=== PATIENT | female | born 1990 | race Caucasian/White ===

== ENCOUNTER 2024-12-21 12:21 | Emergency (ER) | payer OTHER, SELFPAY ==
[2024-12-21 12:23] VITALS: BP 160/102
[2024-12-21 13:16] VITALS: BMI 20.8
[2024-12-21 13:20] VITALS: BP 139/81
--- NOTE | 2024-12-21 13:32 | ED.GENMED ---
History of Present Illness
<Felicitas Pike, INSERT CUTTER - Last Filed: 12/22/24 14:59>
General
Chief Complaint: Urinary Symptoms
Source: patient
Exam Limitations: none
Time Seen by Provider: 12/21/24 12:55
Nursing documentation reviewed up to this point in time: agreed with
History of Present Illness
History of Present Illness:
34 yo female here for left flank pain anterior and posteriorly for past week. She also feels nauseous. 'They said I have a lesion on my kidney.'
She has a history of migraines, anxiety, chronic convulsions, depression, IBS, cholecystectomy, appendectomy, psychiatric disorder somatic symptom disorder listed on her [facility] paperwork
she was in [facility] ER yesterday and has paperwork (scanned into her chart), states she was diagnosed with shingles left side abdomen and back but could not get her Valtrex filled as she states her pharmacy is closed.
Saw her PCP 4 days ago, diagnosed with 'kidney infection' and given Levaquin. She has taken 4 doses and states she can't take any more due to nausea.
Past History
<Felicitas Pike, INSERT CUTTER - Last Filed: 12/22/24 14:59>
Past History
ED Past Medical History: Seizures, Other (Chronic migraines, chronic neck and back pain, fibromyalgia) and Other (Heart palpitations)
ED Past Surgical History: Orthopedic
Social History
Tobacco: Non-smoker
Alcohol: None
Drug: None
Personal: Single
Living: with family
Employment: Employed
Family History
Family History: Other (Noncontributory)
Review of Systems
<Felicitas Pike, INSERT CUTTER - Last Filed: 12/22/24 14:59>
Review of Systems
Allergies reviewed?: Yes
All Other Systems: ROS reviewed and negative except as documented in HPI and ROS
Constitutional: Denies fever
Respiratory: Denies trouble breathing
Cardiac: Denies chest pain
: Reports flank pain (left)
Musculoskeletal: Reports no symptoms
Skin: Reports no symptoms
Neurological: Denies headache
Psychiatric: Reports anxiety (crying)
Phy Exam
<Felicitas Pike, INSERT CUTTER - Last Filed: 12/22/24 14:59>
Physical Exam
Physical Exam:
GENERAL: Crying constantly
CONSTITUTIONAL: Afebrile.
ENMT: moist mucus membranes, Pharynx nl
RESPIRATORY: Regular respirations, nonlabored, lungs clear.
CARDIOVASCULAR: Regular rate and rhythm, no murmurs, no rubs.
GI: Soft, patient is holding her left abdomen with her right hand and her left flank with her left hand rocking back and forth stating significant pain and 'they told me I had shingles,' normal BS
MUSCULOSKELETAL: Moves with ease. Well perfused.
SKIN: Warm, dry, pink. There is mild erythema left flank and abdomen where she has been squeezing with her hands, no blisters or rash
PSYCH: Anxious tearful mood and affect.
NEUROLOGIC: Awake, alert and oriented. No focal neurological deficits
Course
<Felicitas Pike, INSERT CUTTER - Last Filed: 12/22/24 14:59>
Orders/Labs/Results
Orders:
Orders
12/21/24 13:18
Urinalysis Reflex To Culture Urgent
Date Specimen was Collected: 12/21/24
Time Specimen was Collected: 12:47
Urine Microscopic Reflex Cult Urgent
Urine Culture Urgent
RADHA Source: U
Specimen Description:
Date Specimen was Collected: 12/21/24
Time Specimen was Collected: 12:47
12/21/24 13:23
Test Result ONCE
12/21/24 13:25
Complete Blood Count/With Diff Urgent
Comprehensive Metabolic Panel Urgent
HCG, Serum Qualitative Screen Urgent
12/21/24 13:42
Renal Only US [US Renal Only W/O Bladder] Urgent
Comment:
Reason For Exam: flank pain
12/21/24 14:28
Ondansetron Orally Disint [Zofran Odt (Orally Disintegrating)] 4 mg PO NOW STA
12/21/24 14:30
Gabapentin [Neurontin] 300 mg PO NOW STA
12/21/24 15:44
Lorazepam [Ativan] 0.5 mg IM NOW STA
Abnormal Lab Results
12/21/24 12/21/24
13:18 13:25
MCH 31.4 H pg
(27.0-31.0)
MPV 11.2 H fL
(7.4-10.4)
Lymphocytes % 20.4 L %
(20.5-51.1)
Leukocyte Esterase Rfl 2+ A
(Negative)
Urine WBC (Reflex) 11-15 A /HPF
(0-5)
Urine Bacteria (Reflex) Moderate A
(Negative)
Urine Albumin (Reflex) 1+ A
(Neg - Trace)
12/21/24 13:25
12/21/24 13:25
Vital Signs
Initial and Last Documented VS:
Initial Vital Signs
Temp Pulse Resp BP Pulse Ox
98.4 F 80 18 160/102 98
12/21/24 12:23 12/21/24 12:23 12/21/24 12:23 12/21/24 12:23 12/21/24 12:23
Last Documented Vital Signs
Temp Pulse Resp BP Pulse Ox
98.5 F 78 16 139/81 98
12/21/24 13:20 12/21/24 13:20 12/21/24 13:20 12/21/24 13:20 12/21/24 13:20
<Dell Francis MD - Last Filed: 12/21/24 15:11>
Orders/Labs/Results
Orders:
Orders
12/21/24 13:18
Urinalysis Reflex To Culture Urgent
Date Specimen was Collected: 12/21/24
Time Specimen was Collected: 12:47
Urine Microscopic Reflex Cult Urgent
Urine Culture Urgent
RADHA Source: U
Specimen Description:
Date Specimen was Collected: 12/21/24
Time Specimen was Collected: 12:47
12/21/24 13:23
Test Result ONCE
12/21/24 13:25
Complete Blood Count/With Diff Urgent
Comprehensive Metabolic Panel Urgent
HCG, Serum Qualitative Screen Urgent
12/21/24 13:42
Renal Only US [US Renal Only W/O Bladder] Urgent
Comment:
Reason For Exam: flank pain
12/21/24 14:28
Ondansetron Orally Disint [Zofran Odt (Orally Disintegrating)] 4 mg PO NOW STA
12/21/24 14:30
Gabapentin [Neurontin] 300 mg PO NOW STA
12/21/24 15:44
Lorazepam [Ativan] 0.5 mg IM NOW STA
Abnormal Lab Results
12/21/24 12/21/24
13:18 13:25
MCH 31.4 H pg
(27.0-31.0)
MPV 11.2 H fL
(7.4-10.4)
Lymphocytes % 20.4 L %
(20.5-51.1)
Leukocyte Esterase Rfl 2+ A
(Negative)
Urine WBC (Reflex) 11-15 A /HPF
(0-5)
Urine Bacteria (Reflex) Moderate A
(Negative)
Urine Albumin (Reflex) 1+ A
(Neg - Trace)
12/21/24 13:25
12/21/24 13:25
Vital Signs
Initial and Last Documented VS:
Initial Vital Signs
Temp Pulse Resp BP Pulse Ox
98.4 F 80 18 160/102 98
12/21/24 12:23 12/21/24 12:23 12/21/24 12:23 12/21/24 12:23 12/21/24 12:23
Last Documented Vital Signs
Temp Pulse Resp BP Pulse Ox
98.5 F 78 16 139/81 98
12/21/24 13:20 12/21/24 13:20 12/21/24 13:20 12/21/24 13:20 12/21/24 13:20
<Felicitas Pike, INSERT CUTTER - Last Filed: 12/22/24 14:59>
MDM/Problems Addressed
MDM/Problems Addressed:
Her chart from [facility] yesterday reviewed: she was discharged with diagnoses of herpes zoster, enteritis, renal lesion and suggested to f/u US of kidney as out pt.
She was given gabapentin 300 mg, morphine 4 mg intravenous, Zofran, IV fluids,
had a CAT scan with IV contrast with the only significant findings were: cannot exclude mild small bowel wall thickening/acute enteritis, left ovary containing the remnant of the recently collapsed follicle or cyst. Trace pelvic fluid. A 10 mm
indeterminate left renal cortical lesion and a follow-up nonemergent renal ultrasound was recommended.
Her current medications are listed as Zyrtec 10 mg daily
Flexeril 10 mg twice daily as needed muscle spasms
Sominex which is diphenhydramine 25 mg daily Marinol or dronabinol 5 mg 4 times a day
Gabapentin 600 mg 1 tablet 3 times a day
Zofran 4 mg every 6 hours as needed
Zanaflex 2 mg by mouth 3 times a day
And she was given a prescription for Valtrex 1 g 3 times a day for 7 days
Patient now states she could not get her prescription filled as it was called into the [place] pharmacy and it is not open
I called this get back pharmacy and it is open till 3 PM today. It is closed tomorrow Monday due to the holiday
Since her complete workup at [facility] was negative yesterday including CBC, CMP, CPK, Mg++, Lactate, Hepatic panel, U/A, neg Urine test, EKG, Covid, all unremarkable
Today CBC, CMP normal, HCG neg.
U/A 2+ Leukocytes, 11-15 WBC, moderate bacteria
2:45 PM:
So far workup is negative, patient has not stopped crying since arrival saying 'I am so sick, I do not feel good...What if it is my lupus?... He [her PCP] told me I had a kidney infection...' (She does have a bottle of Levaquin that he has
prescribed for her but she states she cannot hold any of her pills down due to nausea and when offered Zofran she states she took it at home but threw it up and she cannot hold anything down. Offered ODT disintegrating Zofran and she states 'that
will not work.' She has been on the phone with an unknown person, crying constantly for the past 20 minutes stating 'they are not doing anything for me... They won't admit me and give me IV fluids...I need a shot of something for pain.' States she
had Morphine IV at [facility] and is requesting that.
Her urine here shows no significant infection, there are a few white blood cells and I explained to her that we have to wait to the urine culture comes back so we know if and which antibiotic is appropriate. I told her she could hold off on the
antibiotic until the culture comes back but she is constantly crying holding her left flank saying that they told her she has herpes. There is a very mild pink lacy rash on her left posterior and anterior flank but she is constantly grabbingand
squeezing at the area there is no indication of any zoster rash or other significant abnormality.
She then starts crying more loudly holdign her left side and says 'but they told me I have a lesion on my kidney.' I explained to her that that is not the cause of her pain, I explained to her that she was recommended to have an outpatient
ultrasound of her kidney as this is not an emergency but due to her being so upset I offered to do an ultrasound of her kidney here.
She has put her light on while she is talking on the phone and is asking for a patient advocate
Asking for something to throw up in given a large wash basin, she is rocking back and forth on her knees.
Zofran ODT and Gabapentin given for nausea and pain
Offered Toradol and Tramadol but she states she gets dystonic reaction and chest pains with them
We have no pt advocate at 2 p.m. on Monday of weekend so offered Dr. Francis in to evaluate. He sat in room and spoke with her at length and she calmed down some.
Dr. Francis agrees pt is OK for discharge. No indication for narcotic pain medication
Pt has Gabapentin at home she can take for pain.
She has not vomited during entire stay, she spit up white frothy mucus into basin twice
3:[address] Francis back in at pt request, asking for a 'shot' of something. Ativan 0.5 mg IM ordered. She says she takes Ativan at home.
Given copy of US report, all labs, written rx for Zofran orally dissolvable, and Valtrex.
<Felicitas Pike INSERT CUTTER - Last Filed: 12/22/24 14:59>
*Critical Care Note
Total Time (30-74mins, 75-104mins- exclusive of procedures): Not Applicable
ED Attending Note
<Felicitas Pike INSERT CUTTER - Last Filed: 12/22/24 14:59>
-
Portions of this chart may have been created with voice recognition software.� Occasional wrong word or��sound alike� substitutions may have occurred due to the inherent limitations of voice recognition software.
<Dell Francis MD - Last Filed: 12/21/24 15:11>
ED Attending Note
Patient seen and examined by attending physician: Yes
ED Attending Note:
Patient presents to ED secondary to persistent left flank pain. Denies any fever or chills. Patient does report intermittent nausea and vomiting. Denies diarrhea. Denies trauma. Does also reports urinary frequency and painful urination.
Patient has been evaluated by her primary care physician this week and secondary to urine study in the office, patient has been started on Levaquin. In addition, secondary to ongoing symptoms, patient was evaluated at another emergency department
yesterday evening, during which time patient received a blood work as well as CT scan abdomen pelvis. Patient was discharged home afterwards with recommendation to follow-up with her primary care physician as well as commercial glazier. Patient denies
new trauma. Denies inability to urinate. Furthermore, patient does report having had gallbladder and appendix removed earlier this year. Since then, patient states that she has not felt the 'same', with current symptoms, continuation of her other
symptoms.
Physical Exam
General: mild distress, not acutely ill. afebrile.
Head: nc/at. eomi
Neck: supple. no meningeal signs.
Heart: s1/s2 regular rate and rhythm
Lungs: no acute respiratory distress. clear bilaterally
Abdomen: normal bowel sounds. not tender. no distention.
Back: nc/at. eomi
Neuro: alert and oriented x 3. no focal neurological deficits
Skin: no rash
Psychiatric: well kept. interactive and cooperative
Extremities: no edema. no calf tenderness.
Patient's workup at [facility] Emergency Department yesterday reviewed, including blood work and CT scan abdomen pelvis. In light of nonspecific renal findings, renal ultrasound ordered. Patient otherwise remains afebrile, hemodynamically
stable, and without any vomiting episodes. With recent extensive workup, no indication for further workup at this time. I believe it is reasonable to continue her antibiotics and follow-up with her primary condition for continual evaluation and
treatment, including potential referral to urology, hematology, and GI physician.
Discharge Plan
Departure
Patient Disposition: Home (Routine Discharge)
Date of Disposition: 12/21/24
Time of Disposition: 15:03
Patient with high blood pressure during this ER visit?: No
Condition: Fair
Discharge Problem:
Left flank pain
Instructions: Flank pain - ED discharge instructions
Prescriptions:
New
ondansetron 4 mg tablet,disintegrating
4 mg PO Q8H PRN (Reason: nausea and vomiting) 5 Days Qty: 14 0RF
valacyclovir [Valtrex] 1 gram tablet
1,000 mg PO TID Qty: 21 0RF
No Action
diphenhydramine HCl [Benadryl] 25 MG capsule
25 mg PO PRN PRN (Reason: allergies)
lorazepam 0.5 MG tablet
0.5 mg PO Q8H PRN (Reason: anxiety) Qty: 8 0RF
sxdiuijnau-govtjomveshtr-pnuu [Fioricet] 1 EACH capsule
1 - 2 tab PO Q6HPRN PRN (Reason: headache) Qty: 20 0RF
gabapentin [Neurontin] 600 MG tablet
600 mg PO TID
tizanidine 2 mg Tablet
2 mg PO TID
famotidine 10 mg Tablet
10 mg PO DAILY
cetirizine [Zyrtec] 10 mg Tablet
10 mg PO DAILY
dronabinol 5 mg Capsule
5 mg PO QID
methylprednisolone 2 mg Tablet
10 mg PO DAILY
dicyclomine [Bentyl] 20 mg Tablet
20 mg PO TID
montelukast [Singulair] 10 mg Tablet
10 mg PO DAILY
hydroxychloroquine [Plaquenil] 200 mg Tablet
200 mg PO DAILY
Referrals:
Your, Doctor [Other] - Next open appointment
Activity Restrictions/Additional Instructions:
As we discussed, your workup here today shows nothing worrisome
Your blood work is normal
Your urine still has a few white blood cells, so continue your Levaquin and follow up with your family doctor.
Your kidney ultrasound shows two normal kidneys.
I gave you a written prescription for the Valtrex. You can get it filled at any pharmacy.
Interventions
Interventions:
*Risk Screen - Suicide Last Done: 12/21/24 12:23
*General Assessment Last Done: 12/21/24 12:23
*Neglect/Abuse Screening Last Done: 12/21/24 12:23
*ED- Fall Risk Assessment Last Done: 12/21/24 13:16
*ED COVID-19 Vaccine History Last Done: 12/21/24 13:16
*Nursing Disposition Last Done: 12/21/24 15:03
ED-Female Genitourinary Assessment Last Done: 12/21/24 13:15
Discharge Date and Time
Discharge Date/Time: 12/21/24 16:48
Print Language: KHMER
[2024-12-21 13:35] LABS: Urine Albumin 1+ (Neg - Trace); Urine Bilirubin Negative (Negative); Urine Character Clear (Clear); Urine Color Yellow; Urine Glucose Negative (Negative); Urine Ketone Negative (Negative); Urine Leukocyte 2+ (Negative); Urine Nitrite Negative (Negative); Urine Occult Blood Negative (Negative); Urine Urobilinogen Negative (Neg - 1+)
[2024-12-21 13:47] LABS: % Basophils 0.5 % (0-2); % Eosinophils 0.8 % (0-6); % Immature Granulocytes 0.4 % (0-0.5); % Lymphocytes 20.4 % (20.5-51.1); % Monocytes 7.1 % (1.7-9.3); % Neutrophils 70.8 % (42.2-75.2); Absolute Eosinophils 0.1 10^3/uL (0-0.7); Absolute Lymphocytes 1.5 10^3/uL (1.2-3.4); Absolute Monocytes 0.5 10^3/uL (0.1-0.6); Absolute Neutrophils 5.3 10^3/uL (1.4-6.5); Hematocrit 46.7 % (37.0-47.0); Hemoglobin 15.7 g/dL (12.0-16.0); Mean Corp Hgb Conc. 33.6 g/dL (33.0-37.0); Mean Corpuscular Hgb 31.4 pg (27.0-31.0); Mean Corpuscular Volume 93.4 fL (81.0-99.0); Mean Platelet Volume 11.2 fL (7.4-10.4); Nucleated Red Blood Cells % 0 %; Platelet Count 234 10^3/uL (130-400); Red Cell Dist. Width 12.6 % (11.5-14.5); White Blood Cell Count 7.5 10^3/uL (4.8-10.8)
[2024-12-21 13:53] LABS: Urine Squamous Cell >30 /LPF (Few)
[2024-12-21 13:54] LABS: Urine Bacteria Moderate (Negative)
[2024-12-21 13:55] LABS: Urine Red Blood Cell None Seen /HPF (0-2)
[2024-12-21 13:56] LABS: HCG, Serum Qualitative Screen Negative
[2024-12-21 14:00] LABS: ALT (SGPT) < 10 U/L (0-35); AST (SGOT) 17 U/L (14-36); Alkaline Phosphatase 54 U/L (38-126); Blood Urea Nitrogen 12 mg/dl (7-17); Carbon Dioxide 29 mmol/L (22-30); Chloride 107 mmol/L (98-107); Estimated Creatinine Clearance 112 ml/min; Glucose 86 mg/dl (70-99); Potassium 4.5 mmol/L (3.5-5.1); Sodium 140 mmol/L (135-145); Total Bilirubin 0.5 mg/dl (0.2-1.3); Total Protein 7.5 g/dl (6.3-8.2); eGFR > 60.00
[2024-12-21] MEDS: ZOFRAN ODT (ORALLY DISINTEGRATING) 4 MG PO (14:51)
[2024-12-21] MEDS: NEURONTIN 300 MG PO (15:16)
[2024-12-21] MEDS: ATIVAN 0.5 MG IM (16:08)
--- NOTE | 2024-12-21 16:17 | EDRN ---
Addendum entered by Nona Galloway RN 12/21/24 16:42:
At 16:15, this RN confirmed that pt. has safe ride home, ride overheard on speakerphone, verbally agreed to vegetable picker pt. This RN offered to help pt. change and offered to escort her to waiting room, pt. again, irate she is not being admitted, stating
'no one here fucking cares about anybody, my mom has cancer and I do too and no one wants to do anything about it'. Again, INK PRINTER, outgoing RN, and ED attending spoke w/ pt. concerning all of today's test results and how pt. should appropriately follow
up. Pt. again, states she will be contacting patient advocate.
Original Note:
Assumed care of pt. at 15:00 at change of shift. Pt. is extemely tearful, stating, 'I have a lesion on my kidney, I am dying of cancer and no one cares there's just sending me home. No one has even checked my blood pressure since I've been here!'.
Mulitple sets of vital signs have, in fact, been obtained by previous shift, and pt. is stable for discharge, informed must follow up outpt. This RN and outgoing RN informed both Dr. Francis and Annette Pike NP, who had multiple, lengthy discussions w/
pt. concerning results and follow up instructions. INK PRINTER provided pt. d/c instructions and results from today's visit, pt. extremely anxious, offered medication prior to discharge, as long as she has safe ride home. This RN at bedside while pt.
discussing getting picked up by visitor. RN will await to see that pt. has safe ride home prior to assisting pt. to exit. This RN offered to assist pt. to get changed, pt. refused. Pt. asked for pt. advocate number, number provided per her request.
--- NOTE | 2024-12-21 16:34 | EDRN ---
Addendum entered by Nona Galloway RN 12/21/24 19:27:
Per triage, pt.'s ride picked up pt. nearly immediately after being placed in ED waiting room. Pt. was observed getting into vehicle w/ steady gait, w/ discharge paperwork in hand.
Original Note:
Pt. able to dress herself, then sat back down on stretcher, stating, 'my ride is coming, but I can't wait in the waiting room, I am too sick.'. shell worker and provider aware, per provider, RN to call security to escort pt. to waiting room if she is
unwilling to do so herself, as she is discharged, and able to wait in waiting room. This RN, again, offered to bring the pt. herself, instead of involving security. Pt. irate that she is getting discharged, but did willingly sit herself in
wheelchair, allowing this RN to bring to waiting room. Security and special effects artist aware of pt., aware pt. is waiting for ride home.
== END 2024-12-21 16:48 | disposition home or self-care (01) ==
LOC: EMR 12:21
PROVIDERS: Registered Nurse; EMERGENCY PHYSICIAN Emergency Medicine; FAMILY PHYSICIAN Family Medicine
DX: R10.9 Unspecified abdominal pain (principal); F41.9 Anxiety disorder, unspecified; K58.9 Irritable bowel syndrome, unspecified; M79.7 Fibromyalgia; Z79.899 Other long term (current) drug therapy
CPT/HCPCS: 99284; 96372; 76775; 80053; 81003; 81015; 84703; 85025; 87086